=== PATIENT | female | born 1945 | race American Indian/Alaskan Native ===

== ENCOUNTER 2017-06-03 11:15 | Day surgery (SDC) | payer MEDICARE, BC ==
[2017-06-03] MEDS ORDERED: Lactated Ringer's 1,000 ML IV SCH (12:15)
[2017-06-03 12:22] VITALS: BMI 32.2
[2017-06-03] MEDS ORDERED: Propofol 10 mg/ml Inj (20 ML) ONE (13:14)
[2017-06-03 16:08] VITALS: BP 154/89; PULSE 79; RESP 20; TEMP 97; O2SAT 98
== END 2017-06-03 16:50 | disposition home or self-care (01) ==
LOC: ENDO 11:15
PROVIDERS: ATTEND Internal Medicine Gastroenterology
DX: D12.3 Benign neoplasm of transverse colon (principal); K62.1 Rectal polyp; K64.8 Other hemorrhoids; Q43.8 Other specified congenital malformations of intestine; K57.30 Diverticulosis of large intestine without perforation or abscess without bleeding; K29.50 Unspecified chronic gastritis without bleeding; I10 Essential (primary) hypertension
CPT/HCPCS: 43239; 45380; 88305; 88342; J2001; J2704; J3010; J7040; J7120

== ENCOUNTER 2018-06-17 10:47 | Outpatient (CLI) | payer MEDICARE, BC | END 2018-06-17 10:48 | disposition home or self-care (01) | LOC: LAB 10:47 ==

== ENCOUNTER 2018-08-10 07:45 | Day surgery (SDC) | payer MEDICARE, BC | END 2018-08-10 11:40 | disposition home or self-care (01) | LOC: ENDO 07:45 | DX: K21.9 Gastro-esophageal reflux disease without esophagitis (principal) ==